=== PATIENT | female | born 1995 | race Caucasian/White ===

== ENCOUNTER 2021-08-05 14:07 | Emergency (ER) | payer OTHER, SELFPAY ==
[2021-08-05 15:08] VITALS: PULSE 73; RESP 18; TEMP 36.1; O2SAT 98
[2021-08-05 15:35] LABS: Appearance Urine CLOUDY; Color Urine YELLOW; Glucose Urine UA NEG (NEG); Leukocyte Esterase Urine 1+ (NEG); Nitrite Urine NEG (NEG); UACC Culture Trigger YES; Urine Blood NEG (NEG); Urine Ketones NEG (NEG); Urine Protein TRACE MG/DL (NEG-TRACE)
[2021-08-05 15:37] LABS: UPreg QC Valid YES; Urine Pregnancy NEGATIVE (NEGATIVE)
[2021-08-05 15:44] LABS: Amorphous Sediment Urine 2+ /LPF; RBC Urine 0 /HPF (0); Squamous Epithelial Cell Urine 4+ /LPF
--- NOTE | 2021-08-05 16:38 | ED_ITS ---
HPI - Female Genitourinary General Chief complaint: General Medical Stated complaint: L SIDE ABD PAIN Time Seen by Provider: 08/05/21 15:52 Source: patient Mode of arrival: ambulatory Limitations: no limitations History of Present Illness HPI Narrative: Patient presents to the emergency department for evaluation left pelvic cramping for 2 days. States that the cramping feels typical for her menstrual cycle. Patient had a Nexplanon inserted June 2020 and she self removed the Nexplanon May 2021 as she felt was causing her to have mood swings. She is not following with a worsted winder at this time. Reports last Pap smear in November 2020. Denies concern for sexually transmitted infections, denies testing at this time. Denies fevers, chills, dysuria, urinary frequency/hesitancy/urgency, flank pain, nausea, vomiting, abdominal pain, abnormal vaginal discharge, abnormal vaginal bleeding. Related Data Allergies Allergy/AdvReac Type Severity Reaction Status Date / Time Penicillins [PENICILLINS] Allergy Intermediate HIVES Verified 08/05/21 15:12 Review of Systems Review of Systems: Constitutional : No Fever, No Chills ENT/Mouth : No sore throat, No Rhinorrhea Eyes: No Eye Pain, No Redness Cardiovascular : No Chest Pain, No SOB Respiratory : No Cough, No Sputum, No Wheezing Gastrointestinal : No Nausea, No Vomiting, No Diarrhea, no abdominal pain, Genitourinary : Positive pelvic pain No irregular bleeding, No Dysuria, No Urinary Frequency, No vaginal discharge, no hematuria Musculoskeletal : No Myalgias Skin : No rash Neuro : No Weakness, No Headache Psych : No Anxiety/Panic, No Depression Heme/Lymph: No bruising, No Lymphadenopathy Endocrine : No Polyuria, No Polydipsia Yes all other systems are reviewed and are negative [facility] Past Medical History Attestation statement: The following information was validated with the patient. Source: old records reviewed Medical History No known health problems Social History Social History Advance Directives: No Advance Directives Information Provided: No Patient : No Physical Exam Vital Signs: Vital Signs: Last Vital Signs Temp 97.0 F 08/05/21 15:08 Pulse 73 08/05/21 15:08 Resp 18 08/05/21 15:08 Pulse Ox 98 08/05/21 15:08 BMI result Body Mass Index 30.0 Vital signs have been reviewed as normal and appeared to be correct. Blood pressure not pbtained during triage, left ER without receiving discharge papers or change to obtain.? Heart rate normal.? Respiration rate normal. Temperature normal.? Oxygen saturation normal. Appearance: Alert.?Oriented to person, place and time. No acute distress.?Normal affect. Eyes: Pupils equal, round and reactive to light.? ENT: Pharynx normal.?? Neck: Normal inspection.? Neck supple.?? CVS: Heart sounds normal. Normal heart rate and rhythm.? Pulses normal.?? Respiratory: No respiratory distress.? Lung sounds clear to auscultation bilaterally?? Abdomen: Soft and non-tender. Normoactive bowel sounds. ? Genitourinary: Declined pelvic examination Skin: Skin warm and dry.? Normal skin color.? ?? Extremities: No lower extremity edema.? Neuro: Moves all extremities spontaneously. Sensation intact bilaterally. No focal neuro deficits. Ambulates with normal steady gait. Course Course Course Narrative: Patient is a 26-year-old female presenting for evaluation cramping consistent of menstrual cramping she presented emergency with concern of this cramping as she has not had her menstrual cycle self removing her Nexplanon in May 2021. History and physical exam not consistent with ectopic , ovarian torsion, ruptured ovarian cyst, pelvic inflammatory disease. She reports being certain that the entire Nexplanon was removed from her arm, did not appear broken or fractured in any way. On exam there is no palpable evidence of the Nexplanon in place. Advised patient that at may take a few months for menstrual cycle to become regular after removal and Nexplanon. Suspect that cramping is most likely consistent with return of her menstrual cycle, advised that she may trial ibuprofen for her pain, advised follow-up with clinical field specialist as needed, discussed return precautions, all questions answered. MDM - Female Genitourinary Lab Data Labs: Lab Results 08/05/21 08/05/21 Range/Units 15:29 15:29 Urine Color YELLOW Urine Appearance CLOUDY Urine pH 7.0 (5.0-8.0) Ur Specific [place] 1.010 (1.005-1.025) Urine Protein TRACE (NEG-TRACE) MG/DL Urine Glucose (UA) NEG (NEG) MG/DL Urine Ketones NEG (NEG) MG/DL Urine Blood NEG (NEG) Urine Nitrite NEG (NEG) Ur Leukocyte Esterase 1+ H (NEG) Urine RBC 0 (0) /HPF Urine WBC 1-4 (0-4) /HPF Ur Squamous Epith Cells 4+ /LPF Amorphous Sediment 2+ /LPF Urine Bacteria NONE /LPF Urine Test NEGATIVE (NEGATIVE) Discharge Plan Discharge Clinical Impression: Pelvic cramping Patient Disposition: Home, Self-Care Instructions: Pelvic Pain (ED) Additional Instructions: You can take ibuprofen 200 mg, 3 tablets (600mg) every 6-8 hours as needed for pain, in addition to Tylenol 500 mg, 2 tablets (1,000mg) every 4-6 hours as needed for pain, but not to exceed 3 doses daily (3,000mg).?Follow-up with [facility] provider for persistent symptoms. Return to the emergency department any new or worsening symptoms or concerns
== END 2021-08-05 16:59 | disposition home or self-care (01) ==
LOC: HO.ED 16:45
PROVIDERS: Emergency Provider Emergency Medicine
DX: R10.2 Pelvic and perineal pain (principal)
CPT/HCPCS: 81001; 81025; 87086; 99282; 99283